=== PATIENT | female | born 1985 | race Caucasian/White ===

== ENCOUNTER 2019-03-22 12:27 | Emergency (ER) | payer OTHER ==
[2019-03-22 12:38] VITALS: BP 107/65; PULSE 92; TEMP 98.3; BMI 24.1
--- NOTE | 2019-03-22 13:25 | PDOC ---
History of Present Illness - General Chief Complaint: Cold Symptoms Stated Complaint: COLD SYMPTOMS Time Seen by Provider: 03/22/19 12:41 History Source: Patient Exam Limitations: Clinical Condition - History of Present Illness Initial Comments: 03/22/19 13:21 Patient with no significant past medical history present with spouse with complaint of 3-day history of dry cough, nasal congestion, body aches, fever, chills, throat discomfort and intermittent headaches. Patient reported last fever yesterday of 101 F with no fever today. Patient did not take anything for symptoms. Denies chest pain, shortness of breath, palpitation, nausea, vomiting, diarrhea or constipation. Denies any other symptoms. And spouse present with patient with same symptoms Is this a multiple visit Asthma Patient?: No Timing/Duration: reports: other (3 days) Associated Symptoms: reports: cough, fever/chills, headache, muscle aches, nasal congestion, nasal drainage, sore throat. denies: chest pain/soreness, earache, lightheadedness, shortness of breath Past History - Past Medical History Allergies/Adverse Reactions: Allergies Allergy/AdvReac Type Severity Reaction Status Date / Time No Known Allergies Allergy Verified 03/22/19 12:54 Home Medications: Ambulatory Orders Benzonatate [Tessalon Pearls -] 100 mg PO Q8H PRN #20 capsule 03/22/19 Ipratropium [place] 2 spray NS BID PRN 5 Days #1 spray 03/22/19 Montelukast Na [Singulair -] 10 mg PO DAILY #7 tablet 03/22/19 COPD: No - Immunization History Immunization Up to Date: Yes - Psycho Social/Smoking Cessation Hx Smoking History: Never smoked Hx Alcohol Use: No Drug/Substance Use Hx: No Review of Systems - Review of Systems Able to Perform ROS?: Yes Is the patient limited [place] proficient: No Constitutional: Yes: Chills, Fever, Malaise HEENTM: Yes: Symptoms Reported, See HPI, Nose Congestion, Throat Pain. No: Eye Pain, Blurred Vision, Tearing, Recent change in vision, Double Vision, Cataracts , Ear Pain, Ocular Prothesis, Ear Discharge, Nose Pain, Tinnitus, Nose Bleeding , Hearing Loss, Throat Swelling, Mouth Pain, Dental Problems, Difficulty Swallowing, Mouth Swelling, Other Respiratory: Yes: Symptoms reported, See HPI, Cough. No: Orthopnea, Shortness of Breath, SOB with Exertion, SOB at Rest, Stridor, Wheezing, Productive cough, Hemoptysis, Other Cardiac (ROS): No: Symptoms Reported, See HPI, Chest Pain, Edema, Irregular Heart Rate, Lightheadedness, Palpitations, Syncope, Chest Tightness, Other ABD/GI: No: Symptoms Reported, See HPI, Abd. Pain w/ defecation, Constipated, Diarrhea, Difficulty Swallowing, Nausea, Vomiting, Abdominal cramping Musculoskeletal: No: Symptoms Reported Integumentary: No: Symptoms Reported, Rash Neurological: Yes: Symptoms reported, See HPI, Headache (intermittent ). No: Tremors, Weakness, Dizziness All Other Systems: Reviewed and Negative *Physical Exam - Vital Signs Last Vital Signs Temp Pulse Resp BP Pulse Ox 98.3 F 92 H 18 107/65 100 03/22/19 12:30 03/22/19 12:30 03/22/19 12:30 03/22/19 12:30 03/22/19 12:30 - Physical Exam 03/22/19 13:21 GENERAL: Well developed, well nourished. Awake and alert. No acute distress. HEENT: Normocephalic, atraumatic. PERRLA, EOMI. No conjunctival pallor. Sclera are non-icteric. Moist mucous membranes. Oropharynx is clear. NECK: Supple. Full ROM. CARDIOVASCULAR: Regular rate and rhythm. No murmurs, rubs, or gallops. Distal pulses are 2+ and symmetric. PULMONARY: No evidence of respiratory distress. Lungs clear to auscultation bilaterally. No wheezing, rales or rhonchi. ABDOMINAL: Soft. Non-tender. Non-distended. No rebound or guarding. No organomegaly. Normoactive bowel sounds. MUSCULOSKELETAL Normal range of motion at all joints. SKIN: Warm and dry. Normal capillary refill. No rashes. NEUROLOGICAL: Alert, awake, appropriate. Gait is normal without ataxia. PSYCHIATRIC: Cooperative. Good eye contact. Appropriate mood General Appearance: Yes: Nourished, Appropriately Dressed. No: Apparent Distress Medical Decision Making - Medical Decision Making 03/22/19 13:21 Patient with no significant past medical history present with spouse with complaint of 3-day history of dry cough, nasal congestion, body aches, fever, chills, throat discomfort and intermittent headaches. Patient reported last fever yesterday of 101 F with no fever today. Patient did not take anything for symptoms. Denies chest pain, shortness of breath, palpitation, nausea, vomiting, diarrhea or constipation. Denies any other symptoms. And spouse present with patient with same symptoms Exam significant for bilateral nasal congestion otherwise unremarkable exam. Lungs clear to auscultation bilateral. Patient afebrile. No pharyngeal erythema and normal cardio exam. Symptoms likely viral syndrome URI. Patient stable for outpatient management on Tessalon [place] as needed for cough, Atrovent nasal spray for nasal congestion and Singulair antihistamine for congestion with advised to increase fluid intake and follow-up with PCP Discharge - Discharge Information Problems reviewed: Yes Clinical Impression/Diagnosis: Viral syndrome, URI, acute Condition: Stable Disposition: HOME - Admission No - Additional Discharge Information Prescriptions: Benzonatate [Tessalon Pearls -] 100 mg PO Q8H PRN #20 capsule PRN Reason: Cough Ipratropium [place] 2 spray NS BID PRN 5 Days #1 spray PRN Reason: nasal congestion Montelukast Na [Singulair -] 10 mg PO DAILY #7 tablet - Follow up/Referral - Patient Discharge Instructions Patient Printed Discharge Instructions: DI for Viral Upper Respiratory Infection -- Adult Additional Instructions: Symptoms likely caused by viral infection. Take prescribed medication as prescribed for symptoms. Increase fluid intake. Take Tylenol as needed for fever. Follow-up with primary care as needed - Post Discharge Activity
== END 2019-03-22 13:29 | disposition home or self-care (01) ==
LOC: JER 12:27 → JERFT 12:27
DX: J06.9 Acute upper respiratory infection, unspecified (principal); B97.89 Other viral agents as the cause of diseases classified elsewhere
CPT/HCPCS: 99281-25

== ENCOUNTER 2019-03-31 09:31 | Emergency (ER) | payer OTHER ==
[2019-03-31 09:50] VITALS: BP 110/72; PULSE 68; TEMP 98.5; BMI 28.8
--- NOTE | 2019-03-31 10:56 | PDOC ---
History of Present Illness - General Chief Complaint: Cold Symptoms Stated Complaint: FLU LIKE SYMPTOMS History Source: Patient Exam Limitations: No Limitations - History of Present Illness Initial Comments: 03/31/19 10:50 Patient is a 34-year-old female with no past medical history here with complaints of body aches, fatigue, headache, coughing, fever, chest pain with coughing x 6 days. has been taking Motrin for her symptoms however has not taken any today. States daughter in the household was diagnosed with the flu and the other family members are here in the ER for the same symptoms. PMHX: neg PSOCHX: neg etoh, cig, drug ALL: NKDA GENERAL/CONSTITUTIONAL: [(+) fever or chills. (+) weakness. No weight change.] HEAD, EYES, EARS, NOSE AND THROAT: [No change in vision. No ear pain or discharge. (+) sore throat.] CARDIOVASCULAR: [(+) chest pain (-) shortness of breath.] RESPIRATORY: [(+) cough, wheezing, or hemoptysis.] GASTROINTESTINAL: [No nausea, vomiting, diarrhea or constipation. No rectal bleeding.] GENITOURINARY: [No dysuria, frequency, or change in urination.] MUSCULOSKELETAL: [(+) joint or muscle swelling or pain. No neck or back pain.] SKIN AND BREASTS: [No rash or easy bruising.] NEUROLOGIC: [No headache, vertigo, loss of consciousness, or loss of sensation.] PSYCHIATRIC: [No depression or anxiety.] ENDOCRINE: [No increased thirst. No abnormal weight change.] HEMATOLOGIC/LYMPHATIC: [No anemia, easy bleeding, or history of blood clots.] ALLERGIC/IMMUNOLOGIC: [No hives or skin allergy. No latex allergy.] GENERAL: [The patient is awake, alert, and fully oriented, in mild distress, intermittently coughing.] HEAD: [Normal with no signs of trauma.] EYES: [Pupils equal, round and reactive to light, extraocular movements intact, sclera anicteric, conjunctiva clear.] ENT: [Ears normal, nares patent, oropharynx clear without exudates. Moist mucous membranes.] NECK: [Normal range of motion, supple without lymphadenopathy, JVD, or masses.] LUNGS: [Breath sounds equal, clear to auscultation bilaterally. No wheezes, and no crackles.] HEART: [Regular rate and rhythm, normal S1 and S2 without murmur, rub.] ABDOMEN: [Soft, nontender, normoactive bowel sounds. No guarding, no rebound. No masses.] EXTREMITIES: [Normal range of motion, no edema. No clubbing or cyanosis. No cords, erythema, or tenderness.] NEUROLOGICAL: [Cranial nerves II through XII grossly intact. Normal speech, normal gait.] PSYCH: [Normal mood, normal affect.] SKIN: [Warm, Dry, normal turgor, no rashes or lesions noted.] Past History - Past Medical History Allergies/Adverse Reactions: Allergies Allergy/AdvReac Type Severity Reaction Status Date / Time No Known Allergies Allergy Verified 03/22/19 12:54 Home Medications: Ambulatory Orders Benzonatate [Tessalon Pearls -] 100 mg PO Q8H PRN #20 capsule 03/22/19 Ipratropium [place] 2 spray NS BID PRN 5 Days #1 spray 03/22/19 Montelukast Na [Singulair -] 10 mg PO DAILY #7 tablet 03/22/19 COPD: No - Immunization History Immunization Up to Date: Yes - Psycho Social/Smoking Cessation Hx Smoking History: Never smoked Have you smoked in the past 12 months: No Information on smoking cessation initiated: No Hx Alcohol Use: No Drug/Substance Use Hx: No *Physical Exam - Vital Signs Last Vital Signs Temp Pulse Resp BP Pulse Ox 98.5 F 68 18 110/72 99 03/31/19 09:48 03/31/19 09:48 03/31/19 09:48 03/31/19 09:48 03/31/19 09:48 Medical Decision Making - Medical Decision Making 03/31/19 10:50 Patient is a 34-year-old female with no past medical history here with complaints of body aches, fatigue, headache, coughing, fever, chest pain with coughing x 6 days. has been taking Motrin for her symptoms however has not taken any today. daughter in the household was diagnosed with the flu and the other family members are here in the ER for the same symptoms. Symptoms consistent with flulike illness Offered Motrin in the ER but refused states she will take her own at home. I discussed the physical exam findings, ancillary test results and final diagnoses with the patient. I answered all of the patient's questions. The patient was satisfied with the care received and felt comfortable with the discharge plan and treatment plan. The Patient agrees to follow up with the primary care physician within 24-72 hours. Discharge - Discharge Information Problems reviewed: Yes Clinical Impression/Diagnosis: Viral syndrome, Influenza Condition: Stable Disposition: HOME - Follow up/Referral - Patient Discharge Instructions Patient Printed Discharge Instructions: DI for Influenza -- Adult Additional Instructions: Your Discharge Instructions: You must call primary care physician within 24 hours to arrange follow-up. Return to the Emergency Department with any new, persistent or worsening symptoms, for fever, chills, SOB, dizziness or any other concerning changes that may occur. - Post Discharge Activity Work/Back to School Note: Back to Work
== END 2019-03-31 11:09 | disposition home or self-care (01) ==
LOC: JERFT 09:31
DX: J11.1 Influenza due to unidentified influenza virus with other respiratory manifestations (principal); B34.9 Viral infection, unspecified
CPT/HCPCS: 99282-25

== ENCOUNTER 2019-10-30 10:13 | Emergency (ER) | payer OTHER ==
[2019-10-30 10:18] VITALS: BMI 22.3
[2019-10-30] MEDS ORDERED: METOCLOPRAMIDE HCL INJECTION 10 MG/2 ML VIAL IVPB ONE (10:58)
[2019-10-30] MEDS ORDERED: ACETAMINOPHEN 1000 MG/100 ML VIAL (NON FORMULARY) IVPB ONE (10:58)
[2019-10-30] MEDS ORDERED: LACTATED RINGERS SOLUTION 1000 ML INFUS.BAG IV ONE ×2 (10:59→12:36)
[2019-10-30] MEDS ORDERED: ACETAMINOPHEN INJECTION 100 ML IVPB ONE (11:14)
[2019-10-30] MEDS ORDERED: METOCLOPRAMIDE HCL INJECTION 10 MG/2 ML VIAL ONE (11:14)
--- NOTE | 2019-10-30 11:31 | PDOC ---
History of Present Illness - General History Source: Patient Exam Limitations: Clinical Condition - History of Present Illness Initial Comments: 10/30/19 11:26 Patient with no significant past medical history present with complaint of 2-day history of steady onset of frontal headache which patient described as severe headache with photophobia and 2 episodes of vomiting with intermittent dizziness. Patient denies history of headaches or migraines. Denies head trauma or injury. Denies cough, shortness of breath, chest pain, palpitations, slurred speech, facial droop, difficulty swallowing, unsteady balance. Patient has not taken anything for symptoms. LMP October 12. Denies any other symptoms Timing/Duration: reports: constant, other (2 days) Severity: Yes: severe Associated Symptoms: reports: nausea/vomiting. denies: confusion, fatigue, fever/chills, insomnia, loss of consciousness, paresthesia, ringing in ears, sleepy, slurred speech, tingling in legs/feet, vision changes, weakness <Canelo Patton - Last Filed: 10/30/19 16:52> <Hugh Mckeon - Last Filed: 10/30/19 18:15> - General Chief Complaint: Headache Stated Complaint: HEADACHE Time Seen by Provider: 10/30/19 10:42 Past History - Medical History COPD: No - Reproductive History Is Patient Now?: No - Immunization History Immunization Up to Date: Yes - Psycho-Social/Smoking History Smoking History: Never smoked Have you smoked in the past 12 months: No - Substance Abuse Hx (Audit-C & DAST Scrn) How often the patient has a drink containing alcohol: Never Score: In Men: 4 or > Positive; In Women: 3 or > Positive: 0 Screen Result (Pos requires Nsg. Audit-10AR): Negative In the last yr the pt used illegal drug/Rx for NonMed reason: No Score: Yes response is considered Positive: 0 Screen Result (Positive result requires Nsg. DAST-10): Negative <Canelo Patton - Last Filed: 10/30/19 16:52> <Hugh Mckeon - Last Filed: 10/30/19 18:15> - Medical History Allergies/Adverse Reactions: Allergies Allergy/AdvReac Type Severity Reaction Status Date / Time No Known Allergies Allergy Verified 10/30/19 10:15 Home Medications: Ambulatory Orders Benzonatate [Tessalon Pearls -] 100 mg PO Q8H PRN #20 capsule 03/22/19 Ipratropium [place] 2 spray NS BID PRN 5 Days #1 spray 03/22/19 Montelukast Na [Singulair -] 10 mg PO DAILY #7 tablet 03/22/19 Butalb/Acetaminophen/Caffeine [Fioricet 50-300-40 mg Capsule] 1 each PO Q8H PRN #16 capsule 10/30/19 Neuro Specific PMHX - Complaint Specific PMHX Glaucoma: No Herniated Disk: No Laminectomy: No Migraine: No Multiple Sclerosis: No Neuropathy: No TIA: No <Canelo Patton - Last Filed: 10/30/19 16:52> Review of Systems - Review of Systems Able to Perform ROS?: Yes Is the patient limited [place] proficient: No Constitutional: No: Chills, Fever, Malaise HEENTM: Yes: Symptoms Reported, See HPI, Blurred Vision (photophobia). No: Eye Pain, Tearing, Recent change in vision, Double Vision, Cataracts, Ear Pain, Ocular Prothesis, Ear Discharge, Nose Pain, Nose Congestion, Tinnitus, Nose Bleeding, Hearing Loss, Throat Pain, Throat Swelling, Mouth Pain, Dental Problems, Difficulty Swallowing, Mouth Swelling, Other Respiratory: No: Symptoms reported, See HPI, Cough, Orthopnea, Shortness of Breath, SOB with Exertion, SOB at Rest, Stridor, Wheezing, Productive cough, Hemoptysis, Other Cardiac (ROS): No: Symptoms Reported, See HPI, Chest Pain, Edema, Irregular Heart Rate, Lightheadedness, Palpitations, Syncope, Chest Tightness, Other ABD/GI: Yes: Symptoms Reported, See HPI, Nausea, Vomiting. No: Abd. Pain w/ defecation, Constipated, Diarrhea, Difficulty Swallowing, Poor Appetite, Poor F luid Intake, Rectal Bleeding, Indigestion, Abdominal cramping : No: Symptoms Reported, Burning, Discharge, Frequency, Hematuria, Urgency Musculoskeletal: No: Symptoms Reported, See HPI Neurological: Yes: Symptoms reported, Headache, Dizziness. No: Numbness, Paresthesia, Seizure, Tingling, Weakness, Unsteady Gait All Other Systems: Reviewed and Negative <Canelo Patton - Last Filed: 10/30/19 16:52> *Physical Exam - Vital Signs Last Vital Signs Temp Pulse Resp BP Pulse Ox 98.5 F 107 H 18 102/66 100 10/30/19 10:17 10/30/19 10:17 10/30/19 10:17 10/30/19 10:17 10/30/19 10:17 - Physical Exam 10/30/19 11:32 GENERAL: Well developed, well nourished. Awake and alert. No acute distress. HEENT: Normocephalic, atraumatic. PERRLA, EOMI. No conjunctival pallor. Sclera are non- icteric. Moist mucous membranes. Oropharynx is clear. NECK: Supple. Full ROM. No JVD. Carotid pulses 2+ and symmetric, without bruits. No thyromegaly. No lymphadenopathy. CARDIOVASCULAR: Regular rate and rhythm. No murmurs, rubs, or gallops. Distal pulses are 2+ and symmetric. PULMONARY: No evidence of respiratory distress. Lungs clear to auscultation bilaterally. No wheezing, rales or rhonchi. ABDOMINAL: Soft. Non-tender. Non-distended. No rebound or guarding. No organomegaly. Normoactive bowel sounds. MUSCULOSKELETAL Normal range of motion at all joints. No bony deformities or tenderness. EXTREMITIES: No cyanosis. No clubbing. No edema. SKIN: Warm and dry. Normal capillary refill. No rashes. No jaundice. NEUROLOGICAL: Alert, awake, appropriate. Cranial nerves 2-12 intact. No deficits to light touch in face, upper extremities and lower extremities. No motor deficits in the in face, upper extremities and lower extremities. Normoreflexic in the upper and lower extremities. Normal speech. Normal tandem walking. Gait is normal without ataxia. PSYCHIATRIC: Cooperative. Good eye contact. Appropriate mood and affect. General Appearance: Yes: Nourished, Appropriately Dressed. No: Apparent Distress <Canelo Patton - Last Filed: 10/30/19 16:52> - Vital Signs Last Vital Signs Temp Pulse Resp BP Pulse Ox 99.3 F 68 18 90/50 L 100 10/30/19 16:12 10/30/19 16:12 10/30/19 16:12 10/30/19 16:12 10/30/19 16:12 <Hugh Mckeon - Last Filed: 10/30/19 18:15> ED Treatment Course - LABORATORY CBC & Chemistry Diagram: 10/30/19 14:35 10/30/19 11:45 - RADIOLOGY Radiology Studies Ordered: Category Date Time Status HEAD CT WITHOUT CONTRAST [CT] Stat CT Scan 10/30/19 11:00 Ordered <Canelo Patton - Last Filed: 10/30/19 16:52> - LABORATORY CBC & Chemistry Diagram: 10/30/19 14:35 10/30/19 11:45 - ADDITIONAL ORDERS Additional order review: Laboratory Results 10/30/19 10/30/19 10/30/19 11:45 11:45 11:06 Sodium 140 Potassium 4.6 Chloride 112 H Carbon Dioxide 18 L Anion Gap 11 BUN 9.3 Creatinine 0.6 Est GFR (CKD-EPI)AfAm 138.80 Est GFR (CKD-EPI)NonAf 119.76 Random Glucose 93 Calcium 9.4 Total Bilirubin 0.4 AST 26 ALT 25 Alkaline Phosphatase 81 Total Protein 8.1 Albumin 4.4 Urine Color Yellow Urine Appearance Clear Urine pH 7.0 Ur Specific [place] 1.003 L Urine Protein Negative Urine Glucose (UA) Negative Urine Ketones Negative Urine Blood Negative Urine Nitrite Negative Urine Bilirubin Negative Urine Urobilinogen 0.2 Ur Leukocyte Esterase Negative Ur Random Sodium 26 L Ur Random Potassium < 9.0 L Ur Random Chloride 20 L Urine HCG, Qual Negative 10/30/19 10/30/19 14:35 11:45 RBC 4.57 Cancelled MCV 76.6 L Cancelled MCHC 30.7 L Cancelled RDW 15.9 H Cancelled MPV 8.1 Cancelled Neutrophils % 65.1 Cancelled Lymphocytes % 28.9 Cancelled Monocytes % 4.4 Cancelled Eosinophils % 0.4 Cancelled Basophils % 1.2 Cancelled - Medications Given in the ED: ED Medications Discontinued Medications Generic Name Dose Route Start Last Admin Trade Name Freq PRN Reason Stop Dose Admin Acetaminophen 1,000 mg 10/30/19 10:58 10/30/19 11:49 Ofirmev Injection - IVPB 10/30/19 10:59 1,000 mg ONCE ONE Administration Lactated Ringer's 1,000 ml 10/30/19 10:59 10/30/19 11:49 Lactated Ringers Solution IV 10/30/19 11:00 1,000 ml ONCE ONE Administration Lactated Ringer's 1,000 ml 10/30/19 12:36 10/30/19 14:30 Lactated Ringers Solution IV 10/30/19 12:37 1,000 ml ONCE ONE Administration Metoclopramide HCl 10 mg 10/30/19 10:58 10/30/19 11:49 Reglan Injection - IVPB 10/30/19 10:59 10 mg ONCE ONE Administration <Hugh Mckeon - Last Filed: 10/30/19 18:15> Medical Decision Making - Medical Decision Making 10/30/19 11:28 Patient with no significant past medical history present with complaint of 2-day history of steady onset of frontal headache which patient described as severe headache with photophobia and 2 episodes of vomiting with intermittent d izziness. Patient denies history of headaches or migraines. Denies head trauma or injury. Denies cough, shortness of breath, chest pain, palpitations, slurred speech, facial droop, difficulty swallowing, unsteady balance. Patient has not taken anything for symptoms. LMP October 12. Denies any other symptoms Clinical exam unremarkable with normal neuro exam. Normal tandem walking. Patient in no acute distress. Patient walking with normal gait. Patient afebrile. Normal cardio and lung exam. Patient symptoms likely migraine headache with aura but given no history of headaches, will do head CT to rule out acute intracranial pathology. CBC, chemistry and electrolytes labs ordered. UA, urine hCG urine culture lab ordered. Tylenol 1 g IV ordered for headache, Reglan 10 mg IV and IV hydration with 1 L lactated Ringer's ordered for migraine headache. Treat based on imaging and lab results 10/30/19 14:[address] unremarkable and shows no acute intracranial abnormality. Chemistry lab unremarkable. CBC lab pending. Patient reported complete improvement of headache and dizziness post Tylenol, Reglan and IV hydration. Patient symptoms likely migraine with aura and will be discharged on Fioricet PRN for headache with neurology follow-up if normal CBC 10/30/19 16:46 CBC normal. Patient stable for discharge with neurology follow-up <Canelo Patton - Last Filed: 10/30/19 16:52> - Medical Decision Making 10/30/19 18:09 I reviewed the case of the mid-level practitioner and was available for consultation while in the emergency department <Hugh Mckeon - Last Filed: 10/30/19 18:15> Discharge - Discharge Information Problems reviewed: Yes - Admission No <Canelo Patton - Last Filed: 10/30/19 16:52> <Hugh Mckeon - Last Filed: 10/30/19 18:15> - Discharge Information Clinical Impression/Diagnosis: Migraine with aura, not intractable Qualifiers: Status migrainosus presence: without status migrainosus Qualified Code(s): G43.109 - Migraine with aura, not intractable, without status migrainosus Nausea and vomiting Qualifiers: Vomiting type: unspecified Vomiting Intractability: non-intractable Qualified Code(s): R11.2 - Nausea with vomiting, unspecified Condition: Improved Disposition: HOME - Additional Discharge Information Prescriptions: Butalb/Acetaminophen/Caffeine [Fioricet 50-300-40 mg Capsule] 1 each PO Q8H PRN #16 capsule PRN Reason: migraine - Follow up/Referral Referrals: Panchito Araujo MD [Staff Physician] - - Patient Discharge Instructions Patient Printed Discharge Instructions: DI for Migraine Additional Instructions: Your blood work was normal. Your head CAT scan is normal as well. Your symptoms likely caused by migraine. Take prescribe medication as needed for migraine. Follow-up referred neurologist. Come back to the emergency room if severe headache with vomiting, dizziness, blurry vision or change in vision - Post Discharge Activity Work/Back to School Note: Back to Work, Parent(s) Back to Work Note
[2019-10-30 12:46] LABS: URINE APPEARANCE CLEAR; URINE BILIRUBIN NEGATIVE (NEGATIVE); URINE COLOR YELLOW; URINE GLUCOSE (UA) NEGATIVE (NEGATIVE); URINE KETONE NEGATIVE (NEGATIVE); URINE LEUK ESTERASE NEGATIVE (NEGATIVE); URINE NITRITE NEGATIVE (NEGATIVE); URINE PROTEIN NEGATIVE (NEGATIVE); URINE UROBILINOGEN 0.2 mg/dL (0.2-1.0)
[2019-10-30 12:52] LABS: ALBUMIN 4.4 g/dl (3.4-5.0); BILIRUBIN,TOTAL 0.4 mg/dL (0.2-1); BLOOD UREA NITROGEN 9.3 mg/dL (7-18); CALCIUM 9.4 mg/dL (8.5-10.1); CREATININE 0.6 mg/dL (0.55-1.3); POTASSIUM 4.6 mmol/L (3.5-5.1); TOT PROT 8.1 g/dl (6.4-8.2)
[2019-10-30 13:01] LABS: HCG,QUALITATIVE URINE NEGATIVE
[2019-10-30 16:15] VITALS: BP 90/50; PULSE 68; TEMP 99.3
[2019-10-30 16:21] LABS: BASO % 1.2 % (0-2.0); EOS % 0.4 % (0-4.5); HEMOGLOBIN 10.8 GM/dL (10.7-15.3); LYMPH % 28.9 % (8-40); MCH 23.5 pg (25.7-33.7); MCHC 30.7 g/dl (32.0-36.0); MEAN CELL VOLUME 76.6 fl (80-96); MEAN PLT VOLUME 8.1 fl (7.5-11.1); MONO % 4.4 % (3.8-10.2); NEUT % 65.1 % (42.8-82.8); PLATELET COUNT 288 K/MM3 (134-434); RBC 4.57 M/mm3 (3.60-5.2); RDW 15.9 % (11.6-15.6); WHITE BLOOD COUNT 9.6 K/mm3 (4.0-10.0)
== END 2019-10-30 16:00 | disposition home or self-care (01) ==
LOC: JER 10:13
PROC: 3E0333Z Introduction of Anti-inflammatory into Peripheral Vein, Percutaneous Approach (ICD-10-PCS; principal; 2019-10-30)
PROC: 3E033GC Introduction of Other Therapeutic Substance into Peripheral Vein, Percutaneous Approach (ICD-10-PCS; 2019-10-30)
DX: G43.109 Migraine with aura, not intractable, without status migrainosus (principal); R11.2 Nausea with vomiting, unspecified
CPT/HCPCS: 36415; 70450-TC; 80053; 81003; 82436; 84133; 84300; 84703; 85025; 87086; 99284-25; J0131

== ENCOUNTER 2021-02-05 09:20 | Emergency (ER) | payer OTHER ==
[2021-02-05 09:34] VITALS: BP 115/72; PULSE 99; TEMP 97.8; BMI 22.3
[2021-02-05 11:08] LABS: EPI CELLS 9 /uL (0-25.1); HCG,QUALITATIVE URINE Negative; HYALINE CASTS 0 /uL (0-3.1); PH,URINE 5.5 (5.0-8.0); URINE APPEARANCE CLEAR; URINE BACTERIA 72 /uL (0-1359); URINE BILIRUBIN NEGATIVE (NEGATIVE); URINE COLOR YELLOW; URINE GLUCOSE (UA) NEGATIVE (NEGATIVE); URINE KETONE NEGATIVE (NEGATIVE); URINE LEUK ESTERASE 1+ (NEGATIVE); URINE NITRITE NEGATIVE (NEGATIVE); URINE PROTEIN NEGATIVE (NEGATIVE); URINE RBC 6 /uL (0-23.9); URINE UROBILINOGEN 0.2 mg/dL (0.2-1.0); URINE WBC 36 /uL (0-25.8)
== END 2021-02-05 11:46 | disposition home or self-care (01) ==
LOC: JERFT 09:20
DX: N30.00 Acute cystitis without hematuria (principal)
CPT/HCPCS: 36415; 81003; 84703; 87086; 87186; 87491; 87591; 99283-25

== ENCOUNTER 2021-05-23 16:29 | Emergency (ER) | payer OTHER ==
[2021-05-23 16:44] VITALS: BP 121/78; PULSE 107; TEMP 98; BMI 24.5
[2021-05-23 17:51] LABS: EPI CELLS 15 /uL (0-25.1); HYALINE CASTS 0 /uL (0-3.1); PH,URINE 6.5 (5.0-8.0); URINE APPEARANCE CLEAR; URINE BILIRUBIN NEGATIVE (NEGATIVE); URINE COLOR DK YELLOW; URINE GLUCOSE (UA) NEGATIVE (NEGATIVE); URINE KETONE NEGATIVE (NEGATIVE); URINE LEUK ESTERASE TRACE (NEGATIVE); URINE NITRITE POSITIVE (NEGATIVE); URINE PROTEIN NEGATIVE (NEGATIVE); URINE RBC 3 /uL (0-23.9); URINE UROBILINOGEN 0.2 mg/dL (0.2-1.0); URINE WBC 19 /uL (0-25.8)
[2021-05-23 17:54] LABS: HCG,QUALITATIVE URINE Negative
[2021-05-23 22:01] LABS: URINE BACTERIA 302 /uL (0-1359)
== END 2021-05-23 18:06 | disposition home or self-care (01) ==
LOC: JERFT 16:29 → JER 16:29 → JERFT 18:06
DX: N30.00 Acute cystitis without hematuria (principal)
CPT/HCPCS: 36415; 81003; 84703; 87086; 87186; 87491; 87591; 99283-25

== ENCOUNTER 2021-06-18 09:31 | Emergency (ER) | payer OTHER ==
[2021-06-18 09:41] VITALS: BP 113/75; PULSE 90; TEMP 98; BMI 25.3
[2021-06-18] MEDS ORDERED: SODIUM CHLORIDE 0.9% 500 ML INFUS.BAG IV ONE (10:10)
[2021-06-18] MEDS ORDERED: ACETAMINOPHEN 1000 MG/100 ML BAG IVPB ONE (10:10)
[2021-06-18] MEDS ORDERED: METOCLOPRAMIDE HCL INJECTION 10 MG/2 ML VIAL IVPUSH ONE (10:10)
[2021-06-18] MEDS: KETOROLAC TROMETHAMINE 30 MG/1 ML VIAL IVPUSH ONE ×2 (10:15→11:14)
[2021-06-18] MEDS ORDERED: ACETAMINOPHEN INJECTION 100 ML IVPB ONE (10:16)
[2021-06-18] MEDS ORDERED: METOCLOPRAMIDE HCL 10 MG TABLET (FP) PO ONE (10:16)
[2021-06-18] MEDS ORDERED: METOCLOPRAMIDE HCL INJECTION 10 MG/2 ML VIAL ONE (10:16)
[2021-06-18] MEDS ORDERED: KETOROLAC TROMETHAMINE 30 MG/1 ML VIAL ONE (11:15)
== END 2021-06-18 11:59 | disposition home or self-care (01) ==
LOC: JERFT 09:31
PROC: 3E033GC Introduction of Other Therapeutic Substance into Peripheral Vein, Percutaneous Approach (ICD-10-PCS; principal; 2021-06-18)
DX: R51.9 Headache, unspecified (principal)
CPT/HCPCS: 84703; 96374; 96375; 99284-25

== ENCOUNTER 2021-09-24 09:38 | Emergency (ER) | payer OTHER ==
[2021-09-24 10:09] VITALS: BP 138/82; PULSE 99; TEMP 99.6; BMI 26.4
[2021-09-24 10:46] LABS: THROAT:GRP A STREP NOT DETECTED (NOTDETECTED)
== END 2021-09-24 10:35 | disposition home or self-care (01) ==
LOC: JER 09:38
DX: B34.9 Viral infection, unspecified (principal)
CPT/HCPCS: 0241U-QW; 87651; 99283-25

== ENCOUNTER 2022-01-03 17:18 | Emergency (ER) | payer OTHER ==
[2022-01-03 17:23] VITALS: BP 139/73; PULSE 90; RESP 18; TEMP 98.2; BMI 24.7
[2022-01-03] MEDS ORDERED: KETOROLAC TROMETHAMINE 30 MG/1 ML VIAL IM ONE (18:58)
[2022-01-03] MEDS ORDERED: KETOROLAC TROMETHAMINE 30 MG/1 ML VIAL ONE (18:59)
== END 2022-01-03 19:35 | disposition home or self-care (01) ==
LOC: JERFT 17:18
PROC: 3E0233Z Introduction of Anti-inflammatory into Muscle, Percutaneous Approach (ICD-10-PCS; principal; 2022-01-03)
DX: G44.89 Other headache syndrome (principal)
CPT/HCPCS: 99284-25